=== PATIENT | male | born 1995 | race African-American/Black ===

== ENCOUNTER 2016-04-29 11:58 | Emergency (ER) | payer MEDICAID ==
[2016-04-29 10:41] LABS: INFLUENZA A SCREEN NEGATIVE (NEGATIVE); INFLUENZA B SCREEN NEGATIVE (NEGATIVE)
== END 2016-04-29 13:08 | disposition home or self-care (01) ==
LOC: ER 11:58
PROVIDERS: Nurse Practitioner
DX: J02.9 Acute pharyngitis, unspecified (principal)
CPT/HCPCS: 86308; 87070; 87804; 87880; 96374; 99283; J2765